=== PATIENT | male | born 1935 | race Hispanic/Latino ===

== ENCOUNTER 2018-04-26 15:05 | Emergency (ER) | payer MEDICARE ==
[~2018-04-26] VITALS: Ht 177.8 cm; Wt 94.3 kg
[~2018-04-26 15:05] MED LIST: Z.0.AMLODIPINE BESY1 PO; Z.0.LIPITOR80 MG PO; Z.0.LISINOPRIL10 MG PO; Z.2.LISINOPRIL-HCT1 PO
[2018-04-26] MEDS ORDERED: ASPIRIN 81 MG CHEW TAB PO ONE (15:30)
[2018-04-26 15:40] LABS: BASOPHILS % 0.3 % (0.0-1.0); EOSINOPHILS % 0.3 % (0.0-6.0); HEMATOCRIT 42.9 % (38.2-49.6); HEMOGLOBIN 14.6 g/dL (14.0-18.0); LYMPHOCYTES # (AUTO) 0.9 (1.0-3.2); LYMPHOCYTES % 7.6 % (18.0-39.1); MEAN CORPUSCULAR HEMOGLOBIN 31.5 pg (28-32); MEAN CORPUSCULAR VOLUME 92.7 fL (81-99); MONOCYTES # (AUTO) 1.3 (0.2-0.8); MONOCYTES % 11.6 % (4.4-11.3); NEUTROPHILS # (AUTO) 9.2 (2.1-6.9); NEUTROPHILS % 79.8 % (38.7-80.0); PLATELET COUNT 230 x10e3/uL (140-360); RED BLOOD COUNT 4.63 x10e6/uL (4.3-5.7); RED CELL DISTRIBUTION WIDTH 13.1 % (11.7-14.4)
[2018-04-26 16:03] LABS: ALANINE AMINOTRANSFERASE 18 IU/L (0-55); ALBUMIN 3.3 g/dL (3.5-5.0); ALBUMIN/GLOBULIN RATIO 0.8 (0.8-2.0); ALKALINE PHOSPHATASE 104 IU/L (40-150); ANION GAP 14.1 mmol/L (8-16); BLOOD UREA NITROGEN 24 mg/dL (7-26); BUN/CREATININE RATIO 21 (6-25); CALCIUM 9.7 mg/dL (8.4-10.2); CARBON DIOXIDE 24 mmol/L (22-29); CHLORIDE 102 mmol/L (98-107); CREATINE KINASE 37 IU/L (30-200); CREATININE, SERUM 1.12 mg/dL (0.72-1.25); EST GLOMERULAR FILTRATION RATE > 60 ML/MIN (60-); GLUCOSE 98 mg/dL (74-118); POTASSIUM 4.1 mmol/L (3.5-5.1); SODIUM 136 mmol/L (136-145)
[2018-04-26] MEDS ORDERED: SODIUM CHLORIDE 0.9% 500ML 500 ML IV STA (16:37)
[2018-04-26] MEDS ORDERED: MORPHINE SULFATE 2 MG/ML SYR IV STA (16:37)
[2018-04-26 16:50] LABS: INR 1.27; PROTHROMBIN TIME 14.9 seconds (11.9-14.5)
[2018-04-26 16:56] LABS: AMYLASE 31 U/L (25-125); LIPASE 22 U/L (8-78)
--- NOTE | 2018-04-26 17:52 | Diagnostic Imaging Report ---
PROCEDURE: CHEST SINGLE (PORTABLE) COMPARISON: Patients [facility], DX, CHEST 2 VIEWS, 10/26/2011, 14:24. INDICATIONS: RIGHT LOWER CHEST PAIN ANTERIOR AND POSTERIOR PAIN FINDINGS: LUNGS: Diffusely hyperinflated. Lung lungs are low. Crowding at the lung bases is suggestive of atelectasis. No infiltrates. Vascular markings are normal. PLEURA: No effusions or pneumothorax. HEART \T\ MEDIASTINUM: The heart is top normal in size. Aortic ectasia is stable. BONES \T\ SOFT TISSUES: Unremarkable. There is gaseous distention of the splenic flexure the colon. CONCLUSION: Bibasilar atelectasis. Stable pulmonary hyperinflation consistent with COPD. Dictated by: Dyana Morris M.D. on 04/26/2018 at 17:55 Electronically approved by: Dyana Morris M.D. on 04/26/2018 at 17:55
== END 2018-04-26 18:45 | disposition home or self-care (01) ==
LOC: ER 15:05
DX: R07.89 Other chest pain (principal); R10.11 Right upper quadrant pain; F03.90 Unspecified dementia, unspecified severity, without behavioral disturbance, psychotic disturbance, mood disturbance, and anxiety; Z85.038 Personal history of other malignant neoplasm of large intestine
CPT/HCPCS: 36415; 71045; 80053; 82150; 82550; 82553; 83690; 84484; 85025; 85610; 85730; 93005; 99283; J2270; J7040

== ENCOUNTER 2019-06-30 12:15 | Inpatient (IN) | payer MEDICARE ==
[~2019-06-30] VITALS: Ht 180.3 cm; Wt 64.0 kg
--- OUTSIDE RECORDS SUMMARY | 2019-06-30 12:21 | XMS REPORT ---
Author Author [facility] Address Unknown Phone Unavailable Care Team Providers Care Cistern Room Working Supervisor Name Role Phone Nicolas SCHROEDER Unavailable Unavailable Problems This patient has no known problems. Allergies, Adverse Reactions, Alerts This patient has no known allergies or adverse reactions. Medications This patient has no known medications. Results Test Description Test Time Test Comments Text Results Atomic Results Result Comments CHEST SINGLE (PORTABLE) [address] [address] Patient Name: MAITE HARDY MR #: [id number] : 1935 Age/Sex: 83/M Acct #: [id number] Req #: [id number] Adm Physician: Ordered by: OSEAS SCHROEDER MD Report #: [id number] Location: ER Room/Bed: Procedure: [id number] DX/CHEST SINGLE (PORTABLE) Exam Date: 04/26/18 Exam Time: 1718 REPORT STATUS: Signed PROCEDURE: CHEST SINGLE (PORTABLE) COMPARISON: [facility], DX, CHEST 2 VIEWS, 10/26/2011, 14:24. INDICATIONS: RIGHT LOWER CHEST PAIN ANTERIOR AND POSTERIOR PAIN FINDINGS: LUNGS: Diffusely hyperinflated. Lung lungs are low. Crowding at the lung bases is suggestive of atelectasis. No infiltrates. Vascular markings are normal. PLEURA: No effusions or pneumothorax. HEART T MEDIASTINUM: The heart is top normal in size. Aortic ectasia is stable. BONES T SOFT TISSUES: Unremarkable. There is gaseous distention of the splenic flexure the colon. CONCLUSION: Bibasilar atelectasis. Stable pulmonary hyperinflation consistent with COPD. Dictated by: Khalida Morris M.D. on 04/26/2018 at 17:55 Electronically approved by: Khalida Morris M.D. on 04/26/2018 at 17:55 Dictated By: KHALIDA MORRIS MD 54 Transcribed By: GHANSHYAM on 04/26/181754 COPY TO: OSEAS SCHROEDER MD
[2019-06-30] MEDS ORDERED: SODIUM CHLORIDE 0.9% 500ML 500 ML IV ONE (13:00)
[2019-06-30 13:36] LABS: BASOPHILS % 0.3 % (0.0-1.0); EOSINOPHILS # (AUTO) 0.3 (0.0-0.4); EOSINOPHILS % 2.9 % (0.0-6.0); HEMATOCRIT 42.3 % (38.2-49.6); HEMOGLOBIN 14.2 g/dL (14.0-18.0); LYMPHOCYTES # (AUTO) 0.8 (1.0-3.2); LYMPHOCYTES % 8.8 % (18.0-39.1); MEAN CORPUSCULAR HGB CONC 33.6 g/dL (31-35); MEAN CORPUSCULAR VOLUME 95.3 fL (81-99); MONOCYTES # (AUTO) 0.8 (0.2-0.8); MONOCYTES % 8.8 % (4.4-11.3); NEUTROPHILS # (AUTO) 7.2 (2.1-6.9); NEUTROPHILS % 78.5 % (38.7-80.0); PLATELET COUNT 222 x10e3/uL (140-360); RED BLOOD COUNT 4.44 x10e6/uL (4.3-5.7); RED CELL DISTRIBUTION WIDTH 13.2 % (11.7-14.4)
[2019-06-30 13:48] LABS: INR 1.05; PROTHROMBIN TIME 14.2 seconds (11.9-14.5)
[2019-06-30 13:49] LABS: PARTIAL THROMBOPLASTIN TIME 35.2 seconds (23.8-35.5)
[2019-06-30 13:55] LABS: ALANINE AMINOTRANSFERASE 11 IU/L (0-55); ALBUMIN 3.2 g/dL (3.5-5.0); ALBUMIN/GLOBULIN RATIO 0.8 (0.8-2.0); ALKALINE PHOSPHATASE 98 IU/L (40-150); BLOOD UREA NITROGEN 15 mg/dL (7-26); BUN/CREATININE RATIO 17 (6-25); CALCIUM 9.5 mg/dL (8.4-10.2); CARBON DIOXIDE 22 mmol/L (22-29); CHLORIDE 104 mmol/L (98-107); CREATINE KINASE 21 IU/L (30-200); CREATININE, SERUM 0.87 mg/dL (0.72-1.25); EST GLOMERULAR FILTRATION RATE > 60 ML/MIN (60-); GLUCOSE 84 mg/dL (74-118); SODIUM 140 mmol/L (136-145)
--- NOTE | 2019-06-30 14:00 | Diagnostic Imaging Report ---
EXAMINATION: CHEST SINGLE (PORTABLE) INDICATION: Altered mental status COMPARISON: Chest radiograph of 04/26/2018 FINDINGS: LINES/TUBES:None LUNGS:The lungs are moderately inflated. There is perihilar fullness and indistinctness of the pulmonary vasculature. PLEURA:No pleural effusion or pneumothorax. MEDIASTINUM:Cardiomediastinal silhouette is stably enlarged. Atherosclerotic calcifications of the thoracic aorta. BONES/SOFT TISSUES:No acute osseous injury. ABDOMEN:No free air under the diaphragm. IMPRESSION: Pulmonary interstitial edema. Unchanged cardiomegaly. Signed by: González Falcon MD on 06/30/2019 1:57 PM
--- NOTE | 2019-06-30 14:07 | Diagnostic Imaging Report ---
Examination: CT head without contrast Clinical Indication: Altered mental status. Weakness. Technique: Transaxial noncontrast images from the skull base through the vertex were obtained. Sagittal and coronal reformatted images were done. Dose modulation, iterative reconstruction, and/or weight based adjustment of the mA/kV was utilized to reduce the radiation dose to as low as reasonably achievable. Comparison: None. Findings: Scalp: No abnormalities. Bones: Intact. No fractures. No blastic or lytic lesions. Brain sulci: Mild volume loss for patient's age. Ventricles: No hydrocephalus. Extra-axial space: No abnormalities. Parenchyma: There are patchy areas of low-attenuation within subcortical and periventricular white matter, nonspecific, but could represent microvascular ischemic disease. No masses, hemorrhage, or acute cortical based vascular insults. Cortical-based area of encephalomalacia is seen involving the right supramarginal and angular gyri from prior vascular insult. Suprasellar region: No abnormalities. Craniocervical junction: The foramen magnum is patent. No Chiari one malformation. Incidental findings: Atherosclerotic calcification of the cavernous and supraclinoid internal carotid arteries. Impression: 1. No acute intracranial finding. 2. Mild chronic microvascular ischemic change and volume loss. 3. 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 Signed by: Dr. Ira Jaime M.D. on 06/30/2019 2:04 PM
[2019-06-30] MEDS ORDERED: CEFTRIAXONE SOD 1 GM/NS 50 ML 50 ML IV ONE (15:15)
[2019-06-30] MEDS ORDERED: ONDANSETRON HCL INJ 2MG/ML 2ML 2 MG/ML VIAL IV PRN (15:15)
[2019-06-30 15:37] LABS: BILIRUBIN,URINE NEGATIVE (NEGATIVE); CLARITY,URINE SL CLOUDY (CLEAR); COLOR,URINE ORANGE (YELLOW); KETONES,URINE NEGATIVE (NEGATIVE); LEUKOCYTE ESTERASE ,URINE TRACE (NEGATIVE); NITRITE,URINE POSITIVE (NEGATIVE); PROTEIN,URINE DIPSTICK NEGATIVE (NEGATIVE); URINE UROBILINOGEN 2 mg/dL (0.2 - 1)
[2019-06-30 15:39] LABS: THYROID STIMULATING HORMONE 1.709 uIU/mL (0.350-4.940)
[2019-06-30] MEDS ORDERED: ATIVAN0.5 MG PO (15:44)
[2019-06-30] MEDS ORDERED: AMITRIPTYLINE H50 MG (15:44)
[2019-06-30] MEDS ORDERED: HALOPERIDOL1 MG PO (15:44)
[2019-06-30 15:57] LABS: BACTERIA,URINE FEW /HPF; EPITHELIAL CELLS,URINE RARE /LPF; RBC,URINE 0-5 /HPF (0-5)
[2019-06-30 17:50] VITALS: BP 142/97
--- NOTE | 2019-06-30 17:50 | NUR ---
RECEIVED FROM ER TO ROOM 289. PATIENT IS IN STABLE CONDITION. FAMILY AT BEDSIDE. ADMISSION HISTORY AND INITIAL PHYSICAL ASSESSMENT COMPLETED AND DOCUMENTED. FAMILY AND PATIENT ORIENTED TO ROOM AND POLICIES. CALL LIGHT WITHIN REACH. BED IN THE LOWEST POSITION. BED ALARM ON.
[2019-06-30 18:11] VITALS: BP 142/97
--- NOTE | 2019-06-30 19:15 | NUR ---
patient received awake, alert, but confused. family noted at the bedside. pm assessment complete. no signs of pain/discomfort noted. respirations even and unlabored. close monitoring continues.
--- NOTE | 2019-06-30 19:16 | NUR ---
REPORT GIVEN TO ONCOMING NURSE. PATIENT IS RESTING IN BED. NO ACUTE DISTRESS NOTED. CALL LIGHT WITHIN REACH. BED IN THE LOWEST POSITION. BED ALARM ON.
[2019-06-30 20:00] VITALS: BP_SYST 106; BP_SYST 167; BP_DIAS 51; BP_DIAS 80
[2019-06-30 23:21] LABS: CREATINE KINASE MB 0.8 ng/mL (0-5.0)
[2019-07-01] VITALS (8 sets, daily range): BP systolic 106–210; BP diastolic 51–98
[2019-07-01] MEDS ORDERED: SODIUM CHLORIDE 0.9% 250ML 250 ML ONE (02:58)
[2019-07-01] MEDS: CEFTRIAXONE SOD 1 GM/NS 50 ML 50 ML IV SCH ×2 (03:00→14:42)
[2019-07-01] MEDS: HYDRALAZINE HCL 20 MG/ML VIAL IV PRN ×2 (05:10→21:00)
[2019-07-01 05:42] LABS: BASOPHILS % 0.6 % (0.0-1.0); EOSINOPHILS # (AUTO) 0.7 (0.0-0.4); HEMATOCRIT 37.1 % (38.2-49.6); MEAN CORPUSCULAR VOLUME 94.2 fL (81-99); MONOCYTES # (AUTO) 0.7 (0.2-0.8); MONOCYTES % 9.7 % (4.4-11.3); NEUTROPHILS # (AUTO) 4.4 (2.1-6.9); NEUTROPHILS % 64.1 % (38.7-80.0); PLATELET COUNT 182 x10e3/uL (140-360); RED BLOOD COUNT 3.94 x10e6/uL (4.3-5.7); RED CELL DISTRIBUTION WIDTH 13.3 % (11.7-14.4)
[2019-07-01 06:03] LABS: ALANINE AMINOTRANSFERASE 8 IU/L (0-55); ALBUMIN 2.8 g/dL (3.5-5.0); ALBUMIN/GLOBULIN RATIO 0.9 (0.8-2.0); ALKALINE PHOSPHATASE 78 IU/L (40-150); ANION GAP 14.6 mmol/L (8-16); BLOOD UREA NITROGEN 13 mg/dL (7-26); BUN/CREATININE RATIO 16 (6-25); CALCIUM 8.9 mg/dL (8.4-10.2); CARBON DIOXIDE 23 mmol/L (22-29); CHLORIDE 105 mmol/L (98-107); EST GLOMERULAR FILTRATION RATE > 60 ML/MIN (60-); GLUCOSE 79 mg/dL (74-118); POTASSIUM 3.6 mmol/L (3.5-5.1); SODIUM 139 mmol/L (136-145)
[2019-07-01 06:27] LABS: CREATINE KINASE MB 0.9 ng/mL (0-5.0)
--- NOTE | 2019-07-01 06:50 | NUR ---
RECEIVED PATIENT RESTING IN BED. NO ACUTE DISTRESS NOTED. NO S/S OF PAIN NOTED. CALL LIGHT WITHIN REACH. BED IN THE LOWEST POSITION. BED ALARM ON.
[2019-07-01] MEDS: AMLODIPINE BESYLATE 10 MG TAB PO SCH (08:58)
[2019-07-01] MEDS: ASPIRIN 81 MG ENTERIC COATED PO SCH (08:58)
[2019-07-01] MEDS ORDERED: HALOPERIDOL 1 MG TAB PO PRN (14:30)
[2019-07-01] MEDS ORDERED: LORAZEPAM 0.5 MG TAB PO PRN (14:30)
[2019-07-01] MEDS ORDERED: HALOPERIDOL 5 MG TAB PO PRN (14:45)
--- NOTE | 2019-07-01 14:51 | NUR ---
SPOKE WITH PT AND HE STATES WANTS TO STAY CLOSE TO HOME AND CHOSE [facility]. FAXED CLINICALS TO [phone], STARTING REFERRAL WILL SEND PT NOTES WHEN GET NOTES.
--- NOTE | 2019-07-01 14:54 | NUR ---
GAVE SONS INFORMATION FOR CONTACT, [employer] [employer] [phone]
--- NOTE | 2019-07-01 15:20 | NUR ---
WOUND CARE CONSULTATION: THIS IS AN 84 YEAR OLD MALE PATIENT ADMITTED TO [facility] FOR ATRIAL FIBRILLATION, DIARRHEA, AND WEAKNESS. HEAD TO TOE SKIN ASSESSMENT PERFORMED. PATIENT HAS A STAGE 2 PRESSURE ULCER TO THE RIGHT LATERAL ANKLE MEASURING 1.5X1X0.1CM, PINK GRANULATION NOTED TO WOUND BED. PATIENT HAS A STAGE 1 PRESSURE ULCER TO THE SACRAL CREASE MEASURING 4.5X10CM, 100% NONBLANCHABLE REDNESS NOTED, SKIN INTACT. PATIENT HAS AN OLD, HEALED LEFT BKA SITE, SCAR ONLY PRESENT. LABS: WBC6.82 ALB2.8 BLOOD CULTURE = PENDING URINE CULTURE = PENDING MEDICATIONS: CEFTRIAXONE RECOMMENDATIONS: -CONTINUE ALTERNATING PRESSURE RELIEF MATTRESS. -CONTINUE HEEL PROTECTOR WITH PILLOW SUSPENSION TO RIGHT FOOT. -TURN EVERY 2 HOURS AND PRN. -NURSING TO CLEAN RIGHT LATERAL ANKLE STAGE 2 PRESSURE ULCER WITH NORMAL SALINE, PAT DRY, APPLY VENELEX THEN FOAM DRESSING; CHANGE DAILY AND PRN. -NURSING TO CLEAN STAGE 1 PRESSURE ULCER TO SACRAL CREASE WITH NORMAL SALINE, PAT DRY, APPLY VENELEX THEN ALLEVYN FOAM DRESSING; CHANGE DRESSING BID AND PRN. THANK YOU FOR THIS WOUND CARE CONSULT. Addendum: 07/01/19 at 1533 by iYna Gregorio RN Amended: Links added.
--- NOTE | 2019-07-01 17:57 | NUR ---
Nutrition Intervention Note RD Recommendation(s) for Physician: -Continue diet as ordered -Rec Ensure Enlive BID to increase protein-calorie intake -Rec MVi w/ vitamin C for wound healing Plan of Care: RD following, monitoring for tolerance and adequacy, ONS rec Nutrition reason for involvement: Nutrition risk trigger MST RD Assessment 07/01 84yo M, who was admitted from home, for weakness, diarrhea and Afib. Per RN, pt has had chronic weakness and diarrhea for years. No stool culture was obtained as pt has not had any diarrhea since admission. Visited pt in the room. Pt was confused. Bengali speaking only. Per , pt has had great appetite prior to and during hospital stay. No GI complains reported. No chewing or swallowing difficulty noted. Pt has been drinking 1-2 Ensure at home daily. is agreeable to continue Ensure here. Will continue to monitor and follow. Principal Problems/Diagnoses: Afib, weakness, diarrhea PMH: HTN, colon cancer GI: abdomen soft, flat, non-tender, flatus present Skin: stage 2 pressure ulcer to the right lateral ankle, stage 1 pressure ulcer to the sacral crease, old, healed left BKA site, scar only present Labs: (07/01) reviewed Meds: reviewed Ht: 71in Wt: 141lb BMI: n/a IBW: 162lb (with L BKA) Malnutrition Evaluation (07/01/2019) The patient does not meet criteria for a specified degree of malnutrition at this time. Will re-evaluate at follow-up as appropriate. Nutrition Prescription (Diet Order): Cardiac diet Estimated Nutritional Needs: Calories: 1850 2220kcal (25-30kcal/kg/d) Weight used: ABW Protein: 111 148g(1.5-2) Weight used: ABW Diet Adequacy: Meeting calorie needs, Not meeting protein needs Diet Education Needs Assessment: Diet education not indicated. Nutrition Care Level: low Nutrition Diagnosis: Increased protein needs related to altered skin integrity as evidenced by stage 2 pressure ulcer to the right lateral ankle and stage 1 pressure ulcer to the sacral crease. Goal: Patient will meet 75-100% of estimated needs by follow up Progress: Progressing Interventions: Modified diet, Commercial beverage, Multivitamin/mineral supplement therapy Monitoring/Evaluation: Total energy intake, Total protein intake, Prescription medication, Modified diet, Liquid supplement, Weight change Signed: Juany Hastings, MS, RD, LD
--- NOTE | 2019-07-01 18:49 | NUR ---
REPORT GIVEN TO ONCOMING NURSE. WALKING ROUNDS DONE. PATIENT IS IN STABLE CONDITION. NO ACUTE DISTRESS NOTED. CALL LIGHT WITHIN REACH. BED IN THE LOWEST POSITION.
--- NOTE | 2019-07-01 19:00 | NUR ---
patient received awake, alert, lying quietly in bed. no c/o pain noted. pm assessment complete. family noted at the bedsie. call malloy placed within reach. family instructed to call for assistance when needed.
[2019-07-01] MEDS: AMITRIPTYLINE HCL 25 MG TAB PO SCH (20:29)
[2019-07-01] MEDS: BALSAM PERU/CASTOR OIL 60 GM OINT...G. TP SCH (20:30)
[2019-07-01] MEDS ORDERED: NON-FORMULARY MEDICATION (Amitriptyline Hcl 50 MG) SCH (21:00)
--- NOTE | 2019-07-01 21:00 | NUR ---
patient medicated with hydralazine 10 mg po for bp 188/91 at this time.
[2019-07-02] VITALS (9 sets, daily range): BP systolic 118–161; BP diastolic 65–83
[2019-07-02] MEDS: CEFTRIAXONE SOD 1 GM/NS 50 ML 50 ML IV SCH ×2 (02:23→14:37)
[2019-07-02] MEDS: AMLODIPINE BESYLATE 10 MG TAB PO SCH (08:31)
[2019-07-02] MEDS: ASPIRIN 81 MG ENTERIC COATED PO SCH (08:31)
--- NOTE | 2019-07-02 09:50 | NUR ---
CALLED [facility] SPOKE WITH MAIKEL SHE WILL PUT OUT A FEELER FOR SNF IN NETWORK SINCE [facility] IS NOT IN NETWORK.
[2019-07-02] MEDS: BALSAM PERU/CASTOR OIL 60 GM OINT...G. TP SCH ×2 (10:36→21:44)
--- NOTE | 2019-07-02 15:35 | NUR ---
CALLED AND LEFT MESSAGE FOR SON TO RETURN CALL ABOUT [employer] FOR [employer]AC[employer].
--- NOTE | 2019-07-02 19:54 | NUR ---
RECEIVE DPT IN BED AOX1 .RESTING NO ACUTE DISTRESS NOTED .STAGE 1 TO SACRUM AND RT ANKLE WOUND STAGE 2 .LAC 20 G S/L .CALL LIGHT WITH IN REACH .CONTINUE TO MONITOR
[2019-07-02] MEDS: AMITRIPTYLINE HCL 25 MG TAB PO SCH (21:44)
[2019-07-03] VITALS (9 sets, daily range): BP systolic 135–150; BP diastolic 66–76
[2019-07-03] MEDS: CEFTRIAXONE SOD 1 GM/NS 50 ML 50 ML IV SCH ×2 (03:00→14:58)
--- NOTE | 2019-07-03 07:29 | NUR ---
PT RESTING AND DENIES PAIN .BEDSIDE REPORT GIVEN TO THE ONCOMING NURSE
--- NOTE | 2019-07-03 07:52 | NUR ---
Patient resting in bed, Alert with no distress, bed alarm ON, call light in reach
[2019-07-03] MEDS: ASPIRIN 81 MG ENTERIC COATED PO SCH (08:03)
[2019-07-03] MEDS: AMLODIPINE BESYLATE 10 MG TAB PO SCH (08:03)
--- NOTE | 2019-07-03 08:54 | NUR ---
CALLED AND LEFT MESSAGE FOR SON MAITE RODRIGUEZ TO RETURN CALL
--- NOTE | 2019-07-03 08:59 | NUR ---
SPOKE WITH AND FRIEND EXPLAINED THAT THE PT DOES NOT MEET CRITERIA FOR SNF WITH AUTOMATION CLERK DEVI YESTERDAY, TALKED ABOUT PENDING AND THE ABILITY TO TAKE PT HOME. SHE STATES SHE WAS CARING FOR HIM PRIOR TO HIM COMING HERE, SHE ASKED THAT I CALL SON, SHE STATES IF SHE HAS TO TAKE HIM HOME HER FRIEND WILL BE ABLE TO GET WITH HER FAMILY AND ASSIST WHEN POSSIBLE TO HELP PT AND TO CARE FOR PT. SHE STATES SHE WILL DO WHAT SHE NEEDS. CALLED LUL[facility] FOX TO SEE IF ABLE TO TAKE PENDING WITHOUT [employer] FOR CARE. WAITING ON ANSWER.
[2019-07-03] MEDS: BALSAM PERU/CASTOR OIL 60 GM OINT...G. TP SCH ×2 (10:45→21:15)
--- NOTE | 2019-07-03 15:40 | NUR ---
SPOKE WITH SON HE STATES WE HAVE THE WRONG PHONE NUMBER IT IS [phone], HE STATES IT IS OKAY FOR HIS DOD TO GO HOME WITH HOME HEALTH, WANTS [facility] AND ALSO ASKING FOR A WALKER AND A SHOWER CHAIR FOR HIM AT HOME AND IT IS OKAY TO USE [facility]. ASKED MD FOR ORDER AND WILL FAX HOME HEALTH TO [facility] AT [phone] AND [facility] AT [phone]. DME WILL BE DELIVERED TO HOME AND HOME HEALTH TO FOLLOW UP POST DISCHARGE.
--- NOTE | 2019-07-03 16:01 | NUR ---
[facility] NOT IN NETWORK SENDING CLINICALS TO [facility] PHONE [phone] FAX [phone]
--- NOTE | 2019-07-03 18:38 | NUR ---
patient was stating he is so cold and not feeling good, checked T-97.6, P-81, BP-129/72, Spo2- 97% RA, Not in any acute distress, Warm blanket provided, keep monitoring
[2019-07-03] MEDS: AMITRIPTYLINE HCL 25 MG TAB PO SCH (21:15)
--- NOTE | 2019-07-03 21:15 | NUR ---
PATIENT RESTING COMFORTABLY BOTH EYES CLOSED, NO DISTRESS NOTED. NO COMPLAINTS OF PAIN, BED IS LOCKED IN LOWEST POSITION, CALL LIGHT WITHIN EASY REACH, WILL CONTINUE TO MONITOR.
[2019-07-04 00:33] VITALS: BP 163/76
[2019-07-04] MEDS: CEFTRIAXONE SOD 1 GM/NS 50 ML 50 ML IV SCH (03:16)
--- NOTE | 2019-07-04 07:00 | NUR ---
RECEIVED AM REPORT FROM NURSE, MORNING ROUNDS DONE. PT IS SLEEPING, NO S/S OF DISTRESS. CALL LIGHT WITHIN REACH. SIDE RAILS UP. L AC 20G IS SALINE LOCKED, SITE IS ASYMPTOMATIC
[2019-07-04 07:37] VITALS: BP 141/71
[2019-07-04] MEDS ORDERED: ONDANSETRON HCL 4 MG ORAL DISINTEGRATING TAB PO PRN (08:15)
[2019-07-04] MEDS: ASPIRIN 81 MG ENTERIC COATED PO SCH (08:35)
[2019-07-04] MEDS: AMLODIPINE BESYLATE 10 MG TAB PO SCH (08:36)
[2019-07-04 09:00] VITALS: BP 141/71
--- NOTE | 2019-07-04 10:21 | NUR ---
EDUCATED ABOUT IMM, SIGNED, FILED IN CHART, WITH COPY LEFT WITH FAMILY AT BEDSIDE.
[2019-07-04 11:22] VITALS: BP 130/84
--- NOTE | 2019-07-04 11:41 | NUR ---
DEON RODRIGUEZ CALLED AND STATES THE HOME HEALTH IS NOT [facility], IT IS [facility], CALLED [facility] AND CANCELED REFERRAL, CALLED [facility] [phone] THEY CONFIRMED THEIR PATIENT AND FAXED CLINICALS TO [phone] CALLED BACK THEY RECEIVED AND WILL START SEEING PT TOMORROW.
--- NOTE | 2019-08-08 01:00 | Discharge Summary ---
CHIEF COMPLAINT: Frequent stools. FINAL DIAGNOSES: Dementia, acute altered mental status, peripheral vascular disease. DISPOSITION: Home. HOSPITAL COURSE: An 84-year-old male with known history of hypertension, dementia, peripheral vascular disease, colon CA, status post resection, history of frequent stools, nausea, and vomiting. The patient is a total care individual, opinion on his for all activities of daily. He has had no fever or chills. He underwent review and evaluation in the emergency room. The patient was noted to be a left BKA. Neurological findings were showing diffuse individual, lethargic, and review of data, admission was made for generalized weakness, diarrhea, peripheral vascular disease, vascular dementia, questionable UTI. We will start on IV fluids, begin IV antibiotics. Follow urine studies. Home medications will continue. We will be addressing some PT and OT issues as well. The patient was admitted to the Med-Surg floor, was on cardiac diet, was becoming more alert and responsive on a day-by-day basis as he was continuing his care. Vital signs were stable. He was on IV antibiotics. Daily medications were continuing also. Labs were being watched closely. PT and OT were then carried out daily. He continued to be more alert and responsive. He was documented as a high risk individual for falls. Further care continued. Discussions are being made for discharge home and to set up home health. The patient was noted to be doing progressively better and was cleared to be discharged home with home healthcare watch. IMAGING: Chest x-ray shows pulmonary interstitial edema, unchanged cardiomegaly. Brain CT reveals no acute intracranial findings. Mild chronic microvascular ischemic change and volume loss. 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 Urine cultures were negative. Blood cultures were negative. LABORATORY STUDIES: Show a stable CBC. Urinalysis was showing cloudy clarity, positive nitrites, 0 to 5 rbc's by high-powered field, 6 to 10 wbc's by high-powered field, few bacteria. Chemistries initial electrolyte panel of normal findings. Cardiac enzymes were normal. Thyroid studies were normal. Two more sets of cardiac enzymes were normal. Repeat chemistry panel was normal. As stated, the patient did well, was set to be discharged home. IVs are discontinued. Home health will be provided by . Continue on his current MARs, current diet. Continued to require PT and OT. Continue he will be following up with me in my office for questions or concerns as well family members. Continue on current diet. Medications will consist of amitriptyline 50 mg at bedtime, mg p.o. daily, Haldol 5 mg p.o. t.i.d. p.r.n. for agitation, lorazepam 0.5 mg p.o. q.8 p.r.n. for agitation. Dictated by SALAZAR Carl MD FAUSTINO Solis/AMADOUL /[id number]
== END 2019-07-04 15:34 | DRG 309 ==
LOC: ER 12:15 → ERHOLD 15:24 → MED/SURG3 17:30
DX: I48.2 Chronic atrial fibrillation (principal); N39.0 Urinary tract infection, site not specified; Z68.1 Body mass index [BMI] 19.9 or less, adult; G93.49 Other encephalopathy; F03.91 Unspecified dementia, unspecified severity, with behavioral disturbance; R19.7 Diarrhea, unspecified; I73.9 Peripheral vascular disease, unspecified; I11.0 Hypertensive heart disease with heart failure; I50.9 Heart failure, unspecified; Z89.511 Acquired absence of right leg below knee; Z91.83 Wandering in diseases classified elsewhere; E78.5 Hyperlipidemia, unspecified; Z79.01 Long term (current) use of anticoagulants
CPT/HCPCS: 36415; 70450; 71045; 80053; 81001; 82550; 82553; 83735; 84436; 84443; 84479; 84484; 85025; 85610; 85730; 87040; 87086; 93005; 97139; 99284; J0360; J0696; J7040; J7050

== ENCOUNTER 2019-08-25 12:45 | Inpatient (IN) | payer MEDICARE ==
[~2019-08-25] VITALS: Ht 182.9 cm; Wt 70.5 kg
[~2019-08-25 12:45] MED LIST changes: +AMITRIPTYLINE H50 MG; +ATIVAN0.5 MG PO; +HALOPERIDOL1 MG PO
[2019-08-25] MEDS ORDERED: SODIUM CHLORIDE 0.9% 500ML 500 ML IV STA (14:30)
--- NOTE | 2019-08-25 15:45 | Diagnostic Imaging Report ---
EXAMINATION: CHEST 2 VIEWS INDICATION: Cough, fever COMPARISON: Chest radiograph of 06/30/2019 FINDINGS: LINES/TUBES:None LUNGS:The lungs are moderately inflated. There is perihilar fullness and indistinctness of the pulmonary vasculature. New focal patchy opacities at the right and left lung bases. PLEURA:No pleural effusion or pneumothorax. MEDIASTINUM:Cardiomediastinal silhouette is stably enlarged. Atherosclerotic calcifications of the thoracic aorta. BONES/SOFT TISSUES:No acute osseous injury. ABDOMEN:No free air under the diaphragm. IMPRESSION: Cardiomegaly and mild pulmonary edema. Airspace opacities at the right and left lung base may represent airspace edema although superimposed multifocal aspiration or pneumonia could also have this appearance in the proper clinical setting. Signed by: González Falcon MD on 08/25/2019 3:42 PM
[2019-08-25 16:21] LABS: BASOPHILS # (AUTO) 0.1 (0.0-0.1); BASOPHILS % 0.5 % (0.0-1.0); EOSINOPHILS # (AUTO) 0.2 (0.0-0.4); EOSINOPHILS % 1.9 % (0.0-6.0); HEMATOCRIT 41.9 % (38.2-49.6); LYMPHOCYTES % 10.4 % (18.0-39.1); MEAN CORPUSCULAR HEMOGLOBIN 32.7 pg (28-32); MEAN CORPUSCULAR HGB CONC 35.8 g/dL (31-35); MEAN CORPUSCULAR VOLUME 91.3 fL (81-99); MONOCYTES # (AUTO) 0.7 (0.2-0.8); MONOCYTES % 7.9 % (4.4-11.3); NEUTROPHILS # (AUTO) 7.3 (2.1-6.9); NEUTROPHILS % 78.8 % (38.7-80.0); PLATELET COUNT 241 x10e3/uL (140-360); RED BLOOD COUNT 4.59 x10e6/uL (4.3-5.7); RED CELL DISTRIBUTION WIDTH 13.1 % (11.7-14.4)
[2019-08-25 16:22] LABS: BILIRUBIN,URINE NEGATIVE (NEGATIVE); CLARITY,URINE SL CLOUDY (CLEAR); KETONES,URINE NEGATIVE (NEGATIVE); LEUKOCYTE ESTERASE ,URINE NEGATIVE (NEGATIVE); NITRITE,URINE POSITIVE (NEGATIVE); PROTEIN,URINE DIPSTICK TRACE (NEGATIVE)
[2019-08-25 16:24] LABS: COLOR,URINE STRAW (YELLOW)
[2019-08-25 16:31] LABS: PROTHROMBIN TIME 13.7 seconds (11.9-14.5)
[2019-08-25 16:32] LABS: PARTIAL THROMBOPLASTIN TIME 34.2 seconds (23.8-35.5)
[2019-08-25 16:40] LABS: AMORPHOUS SEDIMENT,URINE MODERATE (FEW); BACTERIA,URINE MODERATE /HPF
[2019-08-25 16:41] LABS: ALANINE AMINOTRANSFERASE 6 IU/L (0-55); ALBUMIN 3.3 g/dL (3.5-5.0); ALBUMIN/GLOBULIN RATIO 0.9 (0.8-2.0); ALKALINE PHOSPHATASE 93 IU/L (40-150); ANION GAP 15.1 mmol/L (8-16); BLOOD UREA NITROGEN 15 mg/dL (7-26); BUN/CREATININE RATIO 16 (6-25); CALCIUM 9.6 mg/dL (8.4-10.2); CARBON DIOXIDE 25 mmol/L (22-29); CHLORIDE 99 mmol/L (98-107); CREATINE KINASE 19 IU/L (30-200); CREATININE, SERUM 0.91 mg/dL (0.72-1.25); EST GLOMERULAR FILTRATION RATE > 60 ML/MIN (60-); GLUCOSE 102 mg/dL (74-118); POTASSIUM 3.1 mmol/L (3.5-5.1); SODIUM 136 mmol/L (136-145)
[2019-08-25 16:49] LABS: INFLUENZAE A&B ANTIGEN (RAPID) POSITIVE FLU A (NEGATIVE); STREPTOCOCCUS GRP A ANTIGEN NEGATIVE (NEGATIVE)
[2019-08-25] MEDS ORDERED: VANCOMYCIN 1GM/NS 250 ML 250 ML IV ONE (17:00)
[2019-08-25] MEDS: OSELTAMIVIR PHOSPHATE 75 MG CAP PO SCH (17:21)
[2019-08-25] MEDS: CLINDAMYCIN PHOS 900MG/ 50ML 50 ML IV SCH (17:21)
[2019-08-25] MEDS: CEFEPIME 2 GM/NS 0.9% 100 ML 100 ML IV SCH (17:58)
[2019-08-25] MEDS ORDERED: ONDANSETRON HCL INJ 2MG/ML 2ML 2 MG/ML VIAL IV PRN (20:00)
[2019-08-25] MEDS: SODIUM CHLORIDE 0.9% 1000ML 1,000 ML IV SCH (20:25)
[2019-08-26 00:39] LABS: CREATINE KINASE MB 0.5 ng/mL (0-5.0)
[2019-08-26] MEDS: CLINDAMYCIN PHOS 900MG/ 50ML 50 ML IV SCH ×3 (01:43→17:50)
[2019-08-26 05:54] LABS: BASOPHILS % 0.5 % (0.0-1.0); EOSINOPHILS # (AUTO) 0.2 (0.0-0.4); EOSINOPHILS % 3.7 % (0.0-6.0); HEMATOCRIT 32.1 % (38.2-49.6); LYMPHOCYTES # (AUTO) 0.9 (1.0-3.2); LYMPHOCYTES % 13.5 % (18.0-39.1); MEAN CORPUSCULAR HEMOGLOBIN 32.4 pg (28-32); MEAN CORPUSCULAR HGB CONC 34.3 g/dL (31-35); MEAN CORPUSCULAR VOLUME 94.7 fL (81-99); MONOCYTES # (AUTO) 0.7 (0.2-0.8); NEUTROPHILS # (AUTO) 4.7 (2.1-6.9); NEUTROPHILS % 71.8 % (38.7-80.0); PLATELET COUNT 172 x10e3/uL (140-360); RED BLOOD COUNT 3.39 x10e6/uL (4.3-5.7); RED CELL DISTRIBUTION WIDTH 13.2 % (11.7-14.4)
[2019-08-26 06:27] LABS: ANION GAP 10.2 mmol/L (8-16); BLOOD UREA NITROGEN 11 mg/dL (7-26); BUN/CREATININE RATIO 18 (6-25); CARBON DIOXIDE 19 mmol/L (22-29); CHLORIDE 116 mmol/L (98-107); EST GLOMERULAR FILTRATION RATE > 60 ML/MIN (60-); GLUCOSE 63 mg/dL (74-118); SODIUM 143 mmol/L (136-145)
[2019-08-26] MEDS: CEFEPIME 2 GM/NS 0.9% 100 ML 100 ML IV SCH ×2 (06:32→21:22)
[2019-08-26 06:51] LABS: CREATINE KINASE MB 0.4 ng/mL (0-5.0)
[2019-08-26 06:52] LABS: POTASSIUM 2.2 mmol/L (3.5-5.1)
[2019-08-26 06:53] LABS: CALCIUM 6.2 mg/dL (8.4-10.2)
--- NOTE | 2019-08-26 09:11 | Diagnostic Imaging Report ---
EXAMINATION: CHEST SINGLE (PORTABLE) INDICATION: Fever, pneumonia COMPARISON: Multiple prior chest radiographs, most recently of 08/25/2019 FINDINGS: LINES/TUBES:EKG leads overlie the chest. LUNGS:The lungs are moderately inflated. There is perihilar fullness and indistinctness of the pulmonary vasculature. More focal patchy opacity at the left lung base appears essentially unchanged from 08/25/2019, possibly reflecting aspiration and/or in the proper clinical setting. PLEURA:No pleural effusion or pneumothorax. MEDIASTINUM:The cardiomediastinal silhouette appears unchanged in size and shape. Atherosclerotic calcifications of the thoracic aorta. BONES/SOFT TISSUES:No acute osseous injury. ABDOMEN:No free air under the diaphragm. IMPRESSION: No significant interval change. Signed by: González Falcon MD on 08/26/2019 9:07 AM
[2019-08-26] MEDS: POTASSIUM CHLORIDE 20MEQ/100ML 100 ML IV SCH ×3 (09:47→15:15)
[2019-08-26] MEDS: OSELTAMIVIR PHOSPHATE 75 MG CAP PO SCH ×2 (09:47→17:00)
[2019-08-26] MEDS: SODIUM CHLORIDE 0.9% 1000ML 1,000 ML IV SCH ×2 (09:47→22:31)
--- NOTE | 2019-08-26 14:03 | NUR ---
patient arrived to unit via stretcher with at bedside. patient alert and in no distress. call malloy within reach and bed in lowest position.
[2019-08-26 14:32] VITALS: BP 160/72
[2019-08-26 14:59] VITALS: BP 160/72
[2019-08-26] MEDS ORDERED: INFLUENZA VIRUS VAC SPLIT INJ 0.5 ML SYR IM SCH (15:44)
[2019-08-26] MEDS ORDERED: PNEUMOCOCCAL VACCINE POLYVALENT 23 MCG/0.5 ML VIAL IM SCH (15:44)
[2019-08-26 15:46] VITALS: BP 160/72
[2019-08-26 20:16] VITALS: BP 166/88
[2019-08-26 21:00] VITALS: BP 166/88
[2019-08-27] VITALS (7 sets, daily range): BP systolic 144–158; BP diastolic 68–81
[2019-08-27] MEDS: CLINDAMYCIN PHOS 900MG/ 50ML 50 ML IV SCH ×3 (01:25→16:24)
[2019-08-27] MEDS: CEFEPIME 2 GM/NS 0.9% 100 ML 100 ML IV SCH ×2 (05:25→16:24)
[2019-08-27] MEDS: OSELTAMIVIR PHOSPHATE 75 MG CAP PO SCH ×2 (09:06→16:24)
[2019-08-27 10:21] LABS: BASOPHILS % 0.5 % (0.0-1.0); EOSINOPHILS # (AUTO) 0.3 (0.0-0.4); EOSINOPHILS % 5.1 % (0.0-6.0); HEMATOCRIT 36.4 % (38.2-49.6); HEMOGLOBIN 12.5 g/dL (14.0-18.0); LYMPHOCYTES # (AUTO) 0.6 (1.0-3.2); LYMPHOCYTES % 9.8 % (18.0-39.1); MEAN CORPUSCULAR HEMOGLOBIN 32.1 pg (28-32); MEAN CORPUSCULAR HGB CONC 34.3 g/dL (31-35); MEAN CORPUSCULAR VOLUME 93.6 fL (81-99); MONOCYTES # (AUTO) 0.6 (0.2-0.8); MONOCYTES % 8.5 % (4.4-11.3); NEUTROPHILS # (AUTO) 4.9 (2.1-6.9); NEUTROPHILS % 75.6 % (38.7-80.0); PLATELET COUNT 188 x10e3/uL (140-360); RED BLOOD COUNT 3.89 x10e6/uL (4.3-5.7); RED CELL DISTRIBUTION WIDTH 13.2 % (11.7-14.4)
[2019-08-27 10:29] LABS: ANION GAP 10.9 mmol/L (8-16); BLOOD UREA NITROGEN 11 mg/dL (7-26); BUN/CREATININE RATIO 13 (6-25); CALCIUM 8.3 mg/dL (8.4-10.2); CARBON DIOXIDE 21 mmol/L (22-29); CHLORIDE 106 mmol/L (98-107); CREATININE, SERUM 0.82 mg/dL (0.72-1.25); EST GLOMERULAR FILTRATION RATE > 60 ML/MIN (60-); GLUCOSE 109 mg/dL (74-118); SODIUM 135 mmol/L (136-145)
[2019-08-27 10:46] LABS: POTASSIUM 2.9 mmol/L (3.5-5.1)
[2019-08-27] MEDS ORDERED: POTASSIUM CHLORIDE 20 MEQ TAB CR PO ONE (12:30)
[2019-08-27] MEDS: SODIUM CHLORIDE 0.9% 1000ML 1,000 ML IV SCH (13:25)
--- NOTE | 2019-08-27 15:02 | NUR ---
Nutrition Screen Note RD Recommendation for Physician (08/27): -Consider lifting renal restriction and placing patient on a heart healthy diet per MD if medically feasible, texture per speech. -Recommend SKIN PILER eval d/t pts admission diagnosis. -Recommend Ensure Enlive BID if medically feasible. Plan of Care: RD following, monitoring for tolerance and adequacy Nutrition reason for involvement: Diagnosis Primary Diagnose(s): PNA, possible aspiration PMH: HTN, colon cancer Ht: 72 in Wt: 159 lb BMI: 21.6 kg/m2 IBW: [address] Assessment: 08/27: 84 YOM admitted for PNA, possible aspiration with PMH listed above. Pt was admitted yesterday afternoon and has limited notes recorded within EMR. Pt was last seen by [facility] in early Jun, according to past RD note pt has gained weight from that time and likes to drink Ensure Enlive, will recommend supplement if medically feasible. 12/28 pts admission diagnosis, will recommend SKIN PILER consult as well to ensure the pt is not aspirating when he consumes food. Per AUTISM TUTOR- the pt has been eating very well and is tolerated regular food. Per AUTISM TUTOR- the pt did not want to talk to RD at current time. Chart reviewed. Labs and meds reviewed. K is low today, recommend lifting renal restriction, noted-K is being replaced. Pt has stage II pressure ulcer per EMR on buttock. Will continue to monitor. Current Diet: renal diet Malnutrition Evaluation (08/27) The patient does not meet criteria for a specified degree of malnutrition at this time. Will re-evaluate at follow-up as appropriate. Diet Education Needs Assessment: Diet education indicated, pt not appropriate at this time. Nutrition Care Level: low Signed: Shantel Garcia, NICOLÁS, LD
[2019-08-27] MEDS ORDERED: POTASSIUM CHLORIDE 20 MEQ TAB CR PO SCH ×2 (16:00→20:00)
--- NOTE | 2019-08-27 19:40 | NUR ---
PATIENT RECEIVED. PATIENT IS AAOX3. HOB ELEVATED. RESP EVEN AND UNLABORED. NO ACUTE DISTRESS NOTICED. PATIENT DENIES OF ANY PAIN OR DISCOMFORT. CALL LIGHT WITHIN REACH. INSTRUCT TO CALL FOR ASSISTANCE. BED LOW/LOCKED. BED ALARM IS ON. CONTINUE TO MONITOR CLOSELY
[2019-08-28] VITALS (7 sets, daily range): BP systolic 143–163; BP diastolic 68–93
[2019-08-28] MEDS ORDERED: POTASSIUM CHLORIDE 20 MEQ TAB CR PO SCH
[2019-08-28] MEDS: SODIUM CHLORIDE 0.9% 1000ML 1,000 ML IV SCH ×2 (01:25→19:53)
[2019-08-28] MEDS: CLINDAMYCIN PHOS 900MG/ 50ML 50 ML IV SCH ×3 (01:25→16:52)
[2019-08-28] MEDS: CEFEPIME 2 GM/NS 0.9% 100 ML 100 ML IV SCH ×2 (05:30→16:52)
[2019-08-28] MEDS: OSELTAMIVIR PHOSPHATE 75 MG CAP PO SCH ×2 (08:30→16:52)
[2019-08-29] VITALS (8 sets, daily range): BP systolic 141–179; BP diastolic 72–95
[2019-08-29] MEDS: CLINDAMYCIN PHOS 900MG/ 50ML 50 ML IV SCH ×3 (00:26→17:00)
[2019-08-29] MEDS: CEFEPIME 2 GM/NS 0.9% 100 ML 100 ML IV SCH ×2 (05:19→17:23)
[2019-08-29] MEDS: SODIUM CHLORIDE 0.9% 1000ML 1,000 ML IV SCH ×2 (05:19→17:09)
[2019-08-29 05:49] LABS: ANION GAP 11.3 mmol/L (8-16); BLOOD UREA NITROGEN 11 mg/dL (7-26); BUN/CREATININE RATIO 16 (6-25); CALCIUM 8.3 mg/dL (8.4-10.2); CARBON DIOXIDE 19 mmol/L (22-29); CHLORIDE 109 mmol/L (98-107); EST GLOMERULAR FILTRATION RATE > 60 ML/MIN (60-); GLUCOSE 82 mg/dL (74-118); POTASSIUM 3.3 mmol/L (3.5-5.1); SODIUM 136 mmol/L (136-145)
--- NOTE | 2019-08-29 07:00 | NUR ---
RCD PT AT BED PT IS ALERT AND ORIENTED AND PT RESTING ON BED IV PATENT BY SALINE FLUSH PATENT BED LOW AND LOCKED CALL LIGHT IN REACH
[2019-08-29] MEDS: OSELTAMIVIR PHOSPHATE 75 MG CAP PO SCH ×2 (09:00→17:00)
--- NOTE | 2019-08-29 11:03 | NUR ---
84 YO FEMALE HX OF PNEUMONIA , LFT BKA PATIENT ON MODERATE PUP ON ALTERNATING AIR MATTRESS LABS : WBC-6.5, HGB-12.5, GLUCOSE - 109 NEG BLOOD CULTURE PT ON CLINDAMYCIN ,CEFEPIME SKIN ASSESSMENT FINDINGS : RIGHT INNER ANKLE HAS NEWLY HEALED AREA NOTED ALSO DTI NOTED TO RT HEEL HEEL PROTECTOR AND PILLOW SUSPENSION OF RT EXTREMITY IN PLACE SACRUM HAS UNSTAGEABLE ULCER WITH YELLOW FIBRINOUS SLOUGH PRESENT ON 90% OF OTHERWISE GRANULAR WOUND BASESURROUNDING SKIN PINK AND BLANCHABLE ALLEVYN FOAM WITH MESALT TO WOUND BASE IN PLACE RECOMMENDATIONS: NURSING TO PROTECT AND OFFLOAD PT MAINTAIN CLEAN DRY SKIN FOLLOWING MODERATE PUP PROTOCOL NURSING TO OFFLOAD RT HEEL WITH PILLOW SUSPENSION AND PROTECT FROM SHEER WITH HEEL PROTECTOR NURSING TO APPLY VENELEX OINTMENT TO RT HEEL DTI DAILY LEAVE OPEN TO AIR UNDER SOCK AND HEEL PROTECTOR NURSING TO APPLY MESALT TO SACRAL WOUND BED DAILY FOR NONSELECTIVE DEBRIDEMENT OF YELLOW SLOUGH FROM WOUND BED COVER WITH ALLEVYN FOAM NURSING TO RECONSULT WOUNDCARE FOR ANY FUTURE NEEDS OR ASSISTANCE WITH WOUND MANAGEMENT Addendum: 08/29/19 at 1122 by Enrico Rushing RN Amended: Links added.
--- NOTE | 2019-08-29 12:56 | NUR ---
SPOKE WITH MD ABOUT WHAT SON HAD TOLD ME YESTERDAY ABOUT THE PARENTS REFUSAL TO GO TO A FACILITY, LET HIM KNOW SON STATES IF THE DOCTOR GOES IN AND SPEAKS WITH HIM HE MAY BE ABLE TO CONVINCE MOM FOR HIM TO GO BUT THAT WOULD BE THE ONLY WAY. CALLED SON MAITE [phone] TO SEE IF HE HAS CONFIRMED WITH MOTHER THAT IT IS OK AND WHICH OF THE FACILITIES WOULD BE THE CHOICE IN NETWORK, YESTERDAY HE STATES [facility] WOULD BE THE PREFERRED SINCE DR COOMBS IS THE COLLEGE OR UNIVERSITY BUSINESS MANAGER THERE.
--- NOTE | 2019-08-29 19:00 | NUR ---
RECEIVE PATIENT IN BEDSIDE REPORT. PATIENT RESTING IN BED AT THIS TIME, BREATHING EVEN AND NON-LABORED. NO PAIN NOTED OR REPORTED. NO S&S OF DISTRESS NOTED. ALTERNATING PRESSURE MATTRESS ACTIVE. BED LOCKED IN LOWEST POSITION, SIDE RAILS UPX2, CALL LIGHT IN REACH.
--- NOTE | 2019-08-29 19:25 | NUR ---
PT RESTING ON BED BED SIDE REPORT GIVEN TO ONCOMING NURSE
[2019-08-30] MEDS: CLINDAMYCIN PHOS 900MG/ 50ML 50 ML IV SCH ×3 (00:37→17:00)
[2019-08-30 00:38] VITALS: BP 150/68
--- NOTE | 2019-08-30 04:00 | NUR ---
PATIENT BATHED AT THIS TIME. DRESSING TO SACRUM CHANGED. WOUND CARE RECOMMENDATION OF VENELEX AND MESALT UNAVAILABLE AT THIS TIME - NO ORDER, NO OINTMENTS SUPPLIED BY PHARMACY FOR THIS SHIFT. APPLIED NEW ALLEVYN PATCH TO SACRUM AND OFF LOADED HEELS PER RECOMMENDATION. ALTERNATING PRESSURE MATTRESS ACTIVE THROUGHOUT SHIFT. WILL CONTINUE TO MONITOR. BED LOCKED IN LOWEST POSITION, SIDE RAILS UPX2, CALL LIGHT IN REACH.
[2019-08-30 05:35] VITALS: BP 152/86
[2019-08-30] MEDS: CEFEPIME 2 GM/NS 0.9% 100 ML 100 ML IV SCH (05:49)
[2019-08-30] MEDS: SODIUM CHLORIDE 0.9% 1000ML 1,000 ML IV SCH (07:10)
[2019-08-30 07:34] VITALS: BP 161/81
--- NOTE | 2019-08-30 08:59 | NUR ---
RETIREMENT FACILITY DISCHARGE INFORMATION PATIENT HAS BEEN ACCEPTED TO: [facility] [facility], [place] [address] ACCEPTING MD:DR Jake COOMBS ROOM:405B NURSE CALL REPORT TO: [phone]
[2019-08-30] MEDS: OSELTAMIVIR PHOSPHATE 75 MG CAP PO SCH (09:00)
--- NOTE | 2019-08-30 09:30 | NUR ---
PT IS ACCEPTED [facility] PAGED DR COOMBS S TO GET THE DISCHARGE ORDER
[2019-08-30 09:52] VITALS: BP 161/81
[2019-08-30 11:31] VITALS: BP 148/81
[2019-08-30] MEDS ORDERED: AMLODIPINE BESYLATE 10 MG TAB PO SCH (11:45)
[2019-08-30 12:00] LABS: BASOPHILS % 0.6 % (0.0-1.0); EOSINOPHILS # (AUTO) 0.4 (0.0-0.4); EOSINOPHILS % 5.6 % (0.0-6.0); HEMATOCRIT 37.2 % (38.2-49.6); HEMOGLOBIN 13.2 g/dL (14.0-18.0); LYMPHOCYTES % 13.8 % (18.0-39.1); MEAN CORPUSCULAR HEMOGLOBIN 32.4 pg (28-32); MEAN CORPUSCULAR HGB CONC 35.5 g/dL (31-35); MEAN CORPUSCULAR VOLUME 91.4 fL (81-99); MONOCYTES # (AUTO) 0.8 (0.2-0.8); MONOCYTES % 10.7 % (4.4-11.3); NEUTROPHILS # (AUTO) 4.9 (2.1-6.9); NEUTROPHILS % 68.9 % (38.7-80.0); PLATELET COUNT 186 x10e3/uL (140-360); RED BLOOD COUNT 4.07 x10e6/uL (4.3-5.7); RED CELL DISTRIBUTION WIDTH 13.3 % (11.7-14.4)
[2019-08-30 12:16] LABS: ANION GAP 13.1 mmol/L (8-16); BLOOD UREA NITROGEN 12 mg/dL (7-26); BUN/CREATININE RATIO 15 (6-25); CALCIUM 8.7 mg/dL (8.4-10.2); CARBON DIOXIDE 19 mmol/L (22-29); CHLORIDE 110 mmol/L (98-107); CREATININE, SERUM 0.82 mg/dL (0.72-1.25); EST GLOMERULAR FILTRATION RATE > 60 ML/MIN (60-); GLUCOSE 92 mg/dL (74-118); POTASSIUM 3.1 mmol/L (3.5-5.1); SODIUM 139 mmol/L (136-145)
--- NOTE | 2019-08-30 12:16 | Discharge Summary ---
ADMITTING DIAGNOSES: 1. Acute influenza A infection with respiratory manifestations. 2. Left lower lobe pneumonia, likely gram-negative michael. 3. Sepsis, secondary to influenza with pneumonia. 4. Hypertensive heart disease. DISCHARGE DIAGNOSES: 1. Sepsis, secondary to pneumonia, resolved. 2. Left lower lobe pneumonia, likely gram-negative michael, resolving. 3. Influenza A infection with respiratory manifestations/pneumonia, resolving. 4. Hypertensive heart disease. HOSPITAL COURSE: This is an 84-year-old man, who was initially admitted to [facility] with diagnosis of sepsis secondary to left lower lobe pneumonia and influenza A infection. The patient underwent nasal swab during this hospitalization and was found to have positive influenza A antigen. During this hospitalization, he was started on anti-flu medication namely oseltamivir which he completed a fully 5-day therapy. The patient was also started on intravenous clindamycin and cefepime during this hospitalization for his left lower lobe pneumonia. His hospitalization was unremarkable. On admission, his white blood cell count was 9200 with 78% segmentals. Two days later, his white blood cell count 6500 with 75% segmenters. Also on admission, the patient's lactic acid level was 28.7 and one repeat a few hours later was 19.9. The decision was made to transfer the patient to a [facility] facility where he could receive continued intravenous antibiotic therapy. CONDITION ON DISCHARGE: Stable. DISCHARGE MEDICATIONS: 1. Clindamycin 600 mg intravenous every 8 hours for seven more days. 2. Cefepime 1 g intravenous every 12 hours for seven more days. 3. Amlodipine 10 mg daily. FOLLOWUP INSTRUCTIONS: As previously stated, the patient will be transferred to a local [facility] facility namely [facility], where he will receive 7 more days of intravenous antibiotics. MD ROMINA Morales/UNRULY /[id number]
--- NOTE | 2019-08-30 12:19 | NUR ---
REPORT GIVEN TO EDWIN BROOKS LVN
--- NOTE | 2019-08-30 12:30 | NUR ---
PAGED AND NOTIFIED THE POTASSIUM LEVEL TO DR ROLLINS GOT NEW ORDERS
[2019-08-30] MEDS ORDERED: POTASSIUM CHLORIDE 20 MEQ TAB CR PO NR ×2 (12:45→14:45)
[2019-08-30 16:00] VITALS: BP 156/85
--- NOTE | 2019-08-30 17:15 | NUR ---
PT DISCHARGED TO [facility] IN SAFE CONDITION
== END 2019-08-30 17:15 | DRG 871 ==
LOC: ER 12:45 → ERHOLD 21:17 → MED/SURG2 08-26 14:03
DX: A41.9 Sepsis, unspecified organism (principal); J09.X1 Influenza due to identified novel influenza A virus with pneumonia; J15.6 Pneumonia due to other Gram-negative bacteria; I73.9 Peripheral vascular disease, unspecified; E87.6 Hypokalemia; Z88.0 Allergy status to penicillin; F03.90 Unspecified dementia, unspecified severity, without behavioral disturbance, psychotic disturbance, mood disturbance, and anxiety; Z89.512 Acquired absence of left leg below knee; F41.9 Anxiety disorder, unspecified; Z83.3 Family history of diabetes mellitus; Z82.49 Family history of ischemic heart disease and other diseases of the circulatory system; R53.1 Weakness; L89.152 Pressure ulcer of sacral region, stage 2; I11.9 Hypertensive heart disease without heart failure
CPT/HCPCS: 36415; 71045; 71046; 80048; 80053; 81001; 82550; 82553; 82948; 83518; 83605; 84484; 85025; 85610; 85730; 87040; 87070; 87086; 87400; 90732; 93005; 97139; 97602; 99284; J3370; J3480; J7030; J7040